=== PATIENT | male | born 1940 | race Caucasian/White ===

== ENCOUNTER 2019-03-06 12:09 | Observation (INO) | payer MEDICARE ==
[2019-03-06] VITALS (9 sets, daily range): BP systolic 122–159; BP diastolic 63–95
[~2019-03-06] VITALS: Ht 182.9 cm; Wt 114.1 kg
[2019-03-06] MEDS ORDERED: diphenhydrAMINE 25mg capsule PO PRN (12:35)
[2019-03-06] MEDS ORDERED: normal saline 1,000 ML IV SCH ×2 (12:35→19:55)
[2019-03-06 13:26] LABS: BASOPHILS # (AUTO) 0.1 X10'3 (0-0.2); BASOPHILS % (AUTO) 1.5 % (0-1); EOSINOPHILS # (AUTO) 0.3 X10'3 (0-0.9); EOSINOPHILS % (AUTO) 6.8 % (0-6); HEMATOCRIT 52.2 % (42.0-52.0); HEMOGLOBIN 17.8 g/dl (14.0-17.9); LYMPHOCYTES # (AUTO) 1.2 X10'3 (1.1-4.8); LYMPHOCYTES % (AUTO) 24.6 % (21-51); MEAN CORPUSCULAR HEMOGLOBIN 29.8 PG (27.0-31.0); MEAN CORPUSCULAR VOLUME 87.8 FL (78-98); MEAN PLATELET VOLUME 7.5 FL (7.4-10.4); MONOCYTES # (AUTO) 0.5 X10'3 (0-0.9); MONOCYTES % (AUTO) 9.8 % (2-12); NEUTROPHILS # (AUTO) 2.9 X10'3 (1.8-7.7); NEUTROPHILS % (AUTO) 57.3 % (42-75); PLATELET COUNT 142 X10'3 (140-440); RED BLOOD COUNT 5.95 X10'6 (4.70-6.10); RED CELL DISTRIBUTION WIDTH 14.9 % (11.5-14.5)
[2019-03-06 13:33] LABS: ALBUMIN 3.5 G/DL (3.4-5.0); ANION GAP 4 (8-16); BLOOD UREA NITROGEN 27 MG/DL (7-18); BUN/CREATININE RATIO 19.6 (5.4-32.0); CALCIUM 8.9 MG/DL (8.5-10.1); CHLORIDE 106 MMOL/L (99-107); CREATININE 1.38 MG/DL (0.60-1.10); GLUCOSE 97 MG/DL (70-104); MAGNESIUM 1.9 MG/DL (1.5-2.4); SODIUM 138 MMOL/L (135-145); TOTAL CARBON DIOXIDE 27.9 MMOL/L (24-32); eGFR 50 ML/MIN
[2019-03-06] MEDS ORDERED: FENO145T38 PO (13:39)
[2019-03-06] MEDS ORDERED: PRAV10TA39 PO (13:39)
[2019-03-06] MEDS ORDERED: METO50TA17 PO (13:39)
[2019-03-06] MEDS ORDERED: TRAM50TA2 PO (13:39)
[2019-03-06] MEDS ORDERED: VARD20TA31 PO (13:39)
[2019-03-06] MEDS ORDERED: TERB250T4 PO (13:39)
[2019-03-06] MEDS ORDERED: DIGO125T97 PO (13:39)
[2019-03-06] MEDS ORDERED: NAPR-1154 PO (13:39)
[2019-03-06] MEDS ORDERED: WARF2.5T PO (13:39)
[2019-03-06] MEDS ORDERED: ALLO300T2 PO (13:39)
[2019-03-06] MEDS ORDERED: FISH12002 PO (13:39)
[2019-03-06] MEDS ORDERED: FLO0.4C PO (13:39)
[2019-03-06] MEDS ORDERED: RANI300C PO (13:39)
[2019-03-06] MEDS ORDERED: midazolam 2 mg/2 ml injection ONE ×3 (14:47→18:12)
[2019-03-06] MEDS ORDERED: ceFAZolin 1GM/D5W- ADD-VANTAGE 50 ML IV ONE (14:47)
[2019-03-06] MEDS ORDERED: fentaNYL/PF 50MCG/1 ML 2ML syringe ONE ×3 (14:47→18:32)
[2019-03-06] MEDS ORDERED: ceFAZolin 1000mg inj ONE (14:48)
[2019-03-06] MEDS ORDERED: LIDOcaine 1% W/epiNEPHrine 1:100,000 20ml vial ONE (14:48)
[2019-03-06] MEDS ORDERED: vancomycin 1,000mg inj ONE (14:48)
[2019-03-06] MEDS ORDERED: iohexol 350 MG/ML 50ML vial IV ONE (17:10)
[2019-03-06] MEDS ORDERED: LIDOcaine 1% (10mg/ml)w/preservative injection 20ml MDV ONE (17:10)
[2019-03-06] MEDS ORDERED: iohexol 350MG/ML 100ml bottle IV ONE ×3 (17:10→18:31)
[2019-03-06] MEDS ORDERED: nitroGLYCERIN-Tridil 50MG/D5W 250 ML IV ONE (17:38)
[2019-03-06] MEDS ORDERED: verapamil 2.5 mg/ml inj IV ONE (17:38)
[2019-03-06] MEDS ORDERED: heparin 1,000unit/ml 10ml vial 10 ML ONE (17:39)
[2019-03-06] MEDS ORDERED: clopidogrel 300mg tablet ONE (18:38)
--- NOTE | 2019-03-06 22:30 | NUR ---
Education provided to pt with family ( and son) present. discharge packet provided and explained including new medication and prescription, signs and symptoms of bleeding and what to do if bleeding occurs. follow up appointment information reviewed and provided in written form, implant (stent) information wallet card provided to pt. pt iv removed and home cloths worn, all belongings gathered and pt brought to car via wheelchair with assistance from RN.
== END 2019-03-06 22:45 | disposition home or self-care (01) ==
LOC: SSTAY O 12:09 → PCU 3S 19:54
PROVIDERS: ADMIT Internal Medicine Cardiovascular Disease; ATTEND Internal Medicine Cardiovascular Disease
DX: Z01.810 Encounter for preprocedural cardiovascular examination (principal); I47.2 Ventricular tachycardia; I48.20 Chronic atrial fibrillation, unspecified; I10 Essential (primary) hypertension; R79.0 Abnormal level of blood mineral; I49.5 Sick sinus syndrome; N40.0 Benign prostatic hyperplasia without lower urinary tract symptoms; R37 Sexual dysfunction, unspecified; G89.4 Chronic pain syndrome; L43.9 Lichen planus, unspecified; I48.92 Unspecified atrial flutter; M25.00 Hemarthrosis, unspecified joint; I73.9 Peripheral vascular disease, unspecified; E78.5 Hyperlipidemia, unspecified; E11.9 Type 2 diabetes mellitus without complications; K21.9 Gastro-esophageal reflux disease without esophagitis; G47.00 Insomnia, unspecified; M10.9 Gout, unspecified; Z87.891 Personal history of nicotine dependence; Z85.820 Personal history of malignant melanoma of skin; Z90.49 Acquired absence of other specified parts of digestive tract; Z95.0 Presence of cardiac pacemaker; Z79.01 Long term (current) use of anticoagulants; Z79.899 Other long term (current) drug therapy
CPT/HCPCS: 36415; 80048; 83735; 85025; 85610; 93458; C1729; C1769; C1874; C1894; C9600; G0378; J0690; J1644; J2001; J2250; J3010; J3370; J7030; Q0163; Q9967; 99152; 99153; A4620; A5120; A6258; C1760; J3490

== ENCOUNTER 2023-06-03 07:33 | Day surgery (SDC) | payer MEDICARE ==
[~2023-06-03] VITALS: Ht 182.9 cm; Wt 120.5 kg
[2023-06-03] VITALS (11 sets, daily range): BP systolic 115–177; BP diastolic 58–97; PULSE 68–82; RESP 14–19; TEMP 98.2; O2SAT 92–98
[~2023-06-03 07:33] MED LIST: ALLO300T2 PO; DIGO125T97 PO; FENO145T38 PO; FISH12002 PO; FLO0.4C PO; METO50TA17 PO; NAPR-1154 PO; PRAV10TA39 PO; RANI300C PO; TERB250T89 PO; TRAM50TA2 PO; VARD20TA31 PO; WARF2.5T2 PO
[2023-06-03] MEDS ORDERED: diphenhydrAMINE 25mg capsule PO PRN (08:05)
[2023-06-03] MEDS ORDERED: normal saline 1,000 ML IV SCH (08:05)
[2023-06-03] MEDS ORDERED: sodium bicarbonate 1meq/ml syr 150 ML in dextrose 5%-water 1,000 ML IV SCH (08:05)
[2023-06-03] MEDS ORDERED: CLOP75TA34 PO (08:19)
[2023-06-03] MEDS ORDERED: CLIN300C71 PO (08:19)
[2023-06-03] MEDS ORDERED: AMI200T PO (08:19)
[2023-06-03 08:57] LABS: BASOPHILS # (AUTO) 0.1 X10'3 (0-0.2); EOSINOPHILS # (AUTO) 0.2 X10'3 (0-0.9); EOSINOPHILS % (AUTO) 3.5 % (0-6); HEMATOCRIT 50.7 % (42.0-52.0); HEMOGLOBIN 16.8 g/dl (14.0-17.9); LYMPHOCYTES # (AUTO) 0.8 X10'3 (1.1-4.8); LYMPHOCYTES % (AUTO) 15.4 % (21-51); MEAN CORPUSCULAR HEMOGLOBIN 29.6 PG (27.0-31.0); MEAN CORPUSCULAR HGB CONC 33.1 g/dL (33.0-36.5); MEAN CORPUSCULAR VOLUME 89.4 FL (78-98); MEAN PLATELET VOLUME 7.2 FL (7.4-10.4); MONOCYTES # (AUTO) 0.5 X10'3 (0-0.9); MONOCYTES % (AUTO) 9.6 % (2-12); NEUTROPHILS # (AUTO) 3.8 X10'3 (1.8-7.7); NEUTROPHILS % (AUTO) 70.5 % (42-75); PLATELET COUNT 152 X10'3 (140-440); RED BLOOD COUNT 5.68 X10'6 (4.70-6.10); RED CELL DISTRIBUTION WIDTH 15.3 % (11.5-14.5); WHITE BLOOD COUNT 5.4 X10'3 (4.5-11.0)
[2023-06-03 09:04] LABS: INR 2.1 INR; PROTHROMBIN TIME 21.4 SECONDS (9.0-12.0)
[2023-06-03 10:13] LABS: ALBUMIN 3.6 G/DL (3.4-5.0); ANION GAP 6 (8-16); BLOOD UREA NITROGEN 25 MG/DL (7-18); BUN/CREATININE RATIO 17.9 (10.0-20.0); CALCIUM 8.9 MG/DL (8.5-10.1); CHLORIDE 106 MMOL/L (99-107); GLUCOSE 110 MG/DL (70-104); MAGNESIUM 2.3 MG/DL (1.5-2.4); POTASSIUM 4.9 MMOL/L (3.5-5.1); SODIUM 139 MMOL/L (135-145); TOTAL CARBON DIOXIDE 26.8 MMOL/L (24-32); eCRCL 45 ML/MIN; eGFR 49 ML/MIN
[2023-06-03] MEDS ORDERED: LIDOcaine 1% (10mg/ml) 2ml vial ONE (12:25)
[2023-06-03] MEDS ORDERED: verapamil 2.5 mg/ml inj IV ONE (12:25)
[2023-06-03] MEDS ORDERED: iohexol 350MG/ML 100ml bottle IV ONE ×2 (12:26→13:50)
[2023-06-03] MEDS ORDERED: fentaNYL/PF 50MCG/1 ML 2ML syringe ONE ×2 (12:26→13:48)
[2023-06-03] MEDS ORDERED: midazolam 1 mg/ML 2ml injection ONE ×2 (12:26→13:05)
[2023-06-03] MEDS ORDERED: iohexol 350 MG/ML 50ML vial IV ONE ×3 (12:26→14:33)
[2023-06-03] MEDS ORDERED: heparin 1,000unit/ml 10ml vial 10 ML ONE (12:26)
[2023-06-03] MEDS ORDERED: nitroGLYCERIN 500mcg/5mL D5W 5 ML IV ONE (12:54)
[2023-06-03] MEDS ORDERED: heparin 1,000 UNITS/NS 500ml 500 ML ONE (14:18)
[2023-06-03] MEDS ORDERED: hydrALAZINE 20mg/ml inj. IV ONE (14:41)
[2023-06-03] MEDS ORDERED: enalaprilat dihydrate 2.5mg/2ml vial IV ONE (15:05)
[2023-06-03] MEDS ORDERED: clopidogrel 300mg tablet ONE (15:06)
[2023-06-03] MEDS ORDERED: proCHLORperazine 10 MG/2 ml inj IV PRN (16:00)
[2023-06-03] MEDS ORDERED: HYDROcodone/acetaminophen 10/325mg tab PO PRN (16:00)
[2023-06-03] MEDS ORDERED: ondansetron/PF 4mg/2ml inj IV PRN (16:00)
[2023-06-03] MEDS ORDERED: HYDROcodone/acetaminophen 5mg/325mg tablet PO PRN (16:00)
== END 2023-06-03 19:00 | disposition home or self-care (01) ==
LOC: SSTAY O 07:33
PROVIDERS: ATTEND Internal Medicine Cardiovascular Disease
DX: R94.39 Abnormal result of other cardiovascular function study (principal); I25.118 Atherosclerotic heart disease of native coronary artery with other forms of angina pectoris; I48.20 Chronic atrial fibrillation, unspecified; I49.5 Sick sinus syndrome; I10 Essential (primary) hypertension; E78.5 Hyperlipidemia, unspecified; N40.0 Benign prostatic hyperplasia without lower urinary tract symptoms; G89.4 Chronic pain syndrome; G45.3 Amaurosis fugax; E11.9 Type 2 diabetes mellitus without complications; K21.9 Gastro-esophageal reflux disease without esophagitis; G47.30 Sleep apnea, unspecified; M10.9 Gout, unspecified; Z79.01 Long term (current) use of anticoagulants; Z79.899 Other long term (current) drug therapy; Z95.5 Presence of coronary angioplasty implant and graft; Z95.0 Presence of cardiac pacemaker; Z87.442 Personal history of urinary calculi; Z98.890 Other specified postprocedural states; Z96.643 Presence of artificial hip joint, bilateral; Z85.820 Personal history of malignant melanoma of skin; Z87.891 Personal history of nicotine dependence; Z72.89 Other problems related to lifestyle; Z82.3 Family history of stroke
CPT/HCPCS: 36415; 80048; 83735; 85025; 85610; 93005; 93458; 99152; 99153; A6258; C1874; C9600; J0360; J1644; J2250; J3010; J3490; J7030; Q9967; A6402; C1725; C1751; C1769; C1894

== ENCOUNTER 2023-06-28 16:23 | Emergency (ER) | payer MEDICARE ==
[~2023-06-28] VITALS: Ht 180.3 cm; Wt 118.4 kg
[~2023-06-28 16:23] MED LIST changes: +AMI200T PO; +CLIN300C71 PO; +CLOP75TA34 PO; -DIGO125T97 PO; -RANI300C PO; -VARD20TA31 PO
[2023-06-28 16:43] VITALS: TEMP 98.9
[2023-06-28] MEDS ORDERED: TAMSULOSIN (17:36)
[2023-06-28] MEDS ORDERED: PRAVASTATIN (17:36)
[2023-06-28] MEDS ORDERED: FENO145T25 PO (17:36)
[2023-06-28] MEDS ORDERED: SERT-434 PO (17:36)
[2023-06-28] MEDS ORDERED: WARF-65 (17:36)
[2023-06-28] MEDS ORDERED: SILV25CR21 (17:36)
[2023-06-28] MEDS ORDERED: ALLO300T8 PO (17:36)
[2023-06-28] MEDS ORDERED: TRAM50TA2 PO (17:36)
[2023-06-28] MEDS ORDERED: METO50TA16 PO (17:36)
[2023-06-28] MEDS ORDERED: PANT40TA54 PO (17:36)
[2023-06-28] MEDS ORDERED: FLO0.4C (17:36)
[2023-06-28 19:39] LABS: BASOPHILS % (AUTO) 0.7 % (0-1); EOSINOPHILS # (AUTO) 0.2 X10'3 (0-0.9); EOSINOPHILS % (AUTO) 2.3 % (0-6); HEMATOCRIT 45.3 % (42.0-52.0); HEMOGLOBIN 15.2 g/dl (14.0-17.9); LYMPHOCYTES # (AUTO) 0.8 X10'3 (1.1-4.8); LYMPHOCYTES % (AUTO) 11.3 % (21-51); MEAN CORPUSCULAR HEMOGLOBIN 29.3 PG (27.0-31.0); MEAN CORPUSCULAR HGB CONC 33.5 g/dL (33.0-36.5); MEAN CORPUSCULAR VOLUME 87.7 FL (78-98); MEAN PLATELET VOLUME 7.6 FL (7.4-10.4); MONOCYTES % (AUTO) 14.2 % (2-12); NEUTROPHILS # (AUTO) 4.9 X10'3 (1.8-7.7); NEUTROPHILS % (AUTO) 71.5 % (42-75); PLATELET COUNT 150 X10'3 (140-440); RED BLOOD COUNT 5.17 X10'6 (4.70-6.10); RED CELL DISTRIBUTION WIDTH 15.7 % (11.5-14.5); WHITE BLOOD COUNT 6.8 X10'3 (4.5-11.0)
[2023-06-28 19:48] LABS: ANION GAP 6 (8-16); BLOOD UREA NITROGEN 31 MG/DL (7-18); BUN/CREATININE RATIO 20.3 (10.0-20.0); CALCIUM 8.4 MG/DL (8.5-10.1); CHLORIDE 108 MMOL/L (99-107); CREATININE 1.53 MG/DL (0.60-1.10); GLUCOSE 99 MG/DL (70-104); POTASSIUM 4.9 MMOL/L (3.5-5.1); SODIUM 142 MMOL/L (135-145); TOTAL CARBON DIOXIDE 28.1 MMOL/L (24-32); eCRCL 40 ML/MIN; eGFR 44 ML/MIN
[2023-06-28] MEDS ORDERED: DOXY100C43 PO (20:31)
[2023-06-28 20:42] LABS: INR 1.8 INR; PROTHROMBIN TIME 18.5 SECONDS (9.0-12.0)
[2023-06-28] MEDS: DOXYCYCLINE 100MG CAPSULE PO STA (21:24)
[2023-06-28] MEDS: traMADol 50MG tablet PO STA (21:44)
[2023-06-28 21:55] VITALS: BP 140/91; PULSE 88; RESP 20; O2SAT 95
== END 2023-06-28 21:57 | disposition home or self-care (01) ==
LOC: ER 16:23
DX: L03.116 Cellulitis of left lower limb (principal); L02.416 Cutaneous abscess of left lower limb; R60.9 Edema, unspecified; I50.9 Heart failure, unspecified; M79.605 Pain in left leg; Z79.899 Other long term (current) drug therapy; Z79.2 Long term (current) use of antibiotics
CPT/HCPCS: 36415; 80048; 85025; 85610; 93926; 99284

== ENCOUNTER 2024-05-02 22:20 | Emergency (ER) | payer MEDICARE ==
[~2024-05-02] VITALS: Ht 182.9 cm; Wt 118.2 kg
[~2024-05-02 22:20] MED LIST changes: +ALLO300T8 PO; +FENO145T25 PO; +FLO0.4C; +METO50TA16 PO; +PANT40TA54 PO; +PRAVASTATIN; +SERT-434 PO; +SILV25CR21; +TAMSULOSIN; +WARF-65
[2024-05-02] MEDS ORDERED: OXYC-145 PO (23:12)
[2024-05-02] MEDS: oxyCODONE/APAP 5-325mg tablet PO ONE (23:17)
[2024-05-03 00:16] VITALS: BP 134/90; PULSE 78; RESP 18; TEMP 97.9; O2SAT 98
== END 2024-05-03 00:17 | disposition home or self-care (01) ==
LOC: ER 22:21
DX: S62.002A Unspecified fracture of navicular [scaphoid] bone of left wrist, initial encounter for closed fracture (principal); I50.9 Heart failure, unspecified; I25.10 Atherosclerotic heart disease of native coronary artery without angina pectoris; I48.91 Unspecified atrial fibrillation; Z79.899 Other long term (current) drug therapy; Z79.1 Long term (current) use of non-steroidal anti-inflammatories (NSAID); W18.39XA Other fall on same level, initial encounter; Y93.89 Activity, other specified; Y92.89 Other specified places as the place of occurrence of the external cause; Y99.8 Other external cause status
CPT/HCPCS: 29125; 73110; 99283; A6449

== ENCOUNTER 2024-05-04 03:56 | Inpatient (IN) | payer MEDICARE ==
[~2024-05-04] VITALS: Ht 182.9 cm; Wt 125.0 kg
[~2024-05-04 03:56] MED LIST changes: +OXYC-145 PO
[2024-05-04 04:40] LABS: BASOPHILS % (AUTO) 0.2 % (0-1); EOSINOPHILS % (AUTO) 0.2 % (0-6); HEMATOCRIT 43.2 % (42.0-52.0); HEMOGLOBIN 14.2 g/dl (14.0-17.9); LYMPHOCYTES # (AUTO) 0.2 X10'3 (1.1-4.8); LYMPHOCYTES % (AUTO) 2.2 % (21-51); MEAN CORPUSCULAR HEMOGLOBIN 27.7 PG (27.0-31.0); MEAN CORPUSCULAR HGB CONC 32.8 g/dL (33.0-36.5); MEAN CORPUSCULAR VOLUME 84.6 FL (78-98); MEAN PLATELET VOLUME 7.5 FL (7.4-10.4); MONOCYTES # (AUTO) 0.3 X10'3 (0-0.9); MONOCYTES % (AUTO) 3.1 % (2-12); NEUTROPHILS # (AUTO) 8.5 X10'3 (1.8-7.7); NEUTROPHILS % (AUTO) 94.3 % (42-75); PLATELET COUNT 102 X10'3 (140-440); RED BLOOD COUNT 5.11 X10'6 (4.70-6.10); RED CELL DISTRIBUTION WIDTH 17.2 % (11.5-14.5)
[2024-05-04] MEDS: HYDROmorphone inj. 0.5 MG/0.5 ML DISP.SYRIN IV ONE (04:48)
[2024-05-04] MEDS: CefTRIAXone 2gm/D5W 50ml BAG 50 ML IV ONE (04:49)
[2024-05-04] MEDS: diltiazem 5mg/ml 5ml inj. IV ONE ×2 (04:51→11:03)
[2024-05-04] MEDS: magnesium sulf-water 2g/50mL 50 ML IV ONE (04:52)
[2024-05-04 04:53] LABS: INR 1.9 INR; PROTHROMBIN TIME 18.8 SECONDS (9.0-12.0)
[2024-05-04] MEDS: normal saline 1000ml 1,000 ML IV ONE (04:53)
[2024-05-04 04:56] LABS: ALANINE AMINOTRANSFERASE 27 U/L (12-78); ALBUMIN 2.4 G/DL (3.4-5.0); ALBUMIN/GLOBULIN RATIO 0.6 (1.1-1.5); ALKALINE PHOSPHATASE 91 IU/L (46-116); ANION GAP 12 (8-16); ASPARTATE AMINO TRANSFERASE 72 U/L (10-37); BILIRUBIN,TOTAL 2.1 MG/DL (0.1-1.0); BLOOD UREA NITROGEN 57 MG/DL (7-18); BUN/CREATININE RATIO 23.3 (10.0-20.0); CALCIUM 8.8 MG/DL (8.5-10.1); CHLORIDE 100 MMOL/L (99-107); CREATININE 2.45 MG/DL (0.60-1.10); GLUCOSE 98 MG/DL (70-104); SODIUM 135 MMOL/L (135-145); TOTAL CARBON DIOXIDE 22.8 MMOL/L (24-32); TOTAL PROTEIN 6.4 G/DL (6.4-8.2); eCRCL 26 ML/MIN; eGFR 25 ML/MIN
[2024-05-04 04:58] LABS: ANISOCYTOSIS 1+; PLATELET ESTIMATE DECREASED; TOTAL CELLS COUNTED 100
[2024-05-04] MEDS: vancomycin/NS 1 GM ADD-VANTAGE 250 ML X 1 DOSE IV ONE (05:01)
[2024-05-04 05:03] LABS: PRO BRAIN NATRIURETIC PEPTIDE 3576 PG/ML (0-450)
[2024-05-04 05:05] LABS: C-REACTIVE PROTEIN 32.11 MG/DL (0.0-0.5); POTASSIUM 3.7 MMOL/L (3.5-5.1)
[2024-05-04 06:20] LABS: LIPASE 51 U/L (16-77)
[2024-05-04] MEDS ORDERED: magnesium Cl slow-release 64mg tablet PO PRN (07:15)
[2024-05-04] MEDS ORDERED: potassium Cl 20 mEq SR tablet PO PRN ×2 (07:15)
[2024-05-04] MEDS ORDERED: potassium Cl 40MEQ/1/2NS 520ml 520 ML IV PRN (07:15)
[2024-05-04] MEDS ORDERED: morphine 2 MG/ML inj. syringe IV PRN (07:15)
[2024-05-04] MEDS ORDERED: magnesium sulf-water 2g/50mL 50 ML IV PRN (07:15)
[2024-05-04] MEDS ORDERED: ondansetron/PF 4mg/2ml inj IV PRN (07:15)
[2024-05-04] MEDS ORDERED: acetaminophen 325mg tablet PO PRN (07:15)
[2024-05-04] MEDS ORDERED: magnesium sulf-water 4G/100mL 100 ML IV PRN (07:15)
[2024-05-04] MEDS: normal saline 1000ml 1,000 ML IV SCH (07:47)
[2024-05-04] MEDS: HYDROcodone/acetaminophen 5mg/325mg tablet PO PRN (07:57)
[2024-05-04] MEDS: doxycycline inj 100 MG in normal saline 100ml IV soln 100 ML IV SCH (09:58)
[2024-05-04] MEDS: acetaminophen 325mg tablet PO SCH (10:07)
[2024-05-04] MEDS: amiodarone 200mg tablet PO SCH (10:07)
[2024-05-04] MEDS: clopidogrel 75mg tablet PO SCH (10:08)
[2024-05-04] MEDS: metoprolol tartrate 50mg tablet PO ONE (10:08)
[2024-05-04] MEDS: heparin, porcine 5000 units/ml vial SQ SCH (10:09)
[2024-05-04 11:49] LABS: BILIRUBIN,URINE SMALL (Neg); GLUCOSE, URINE NEGATIVE (Neg); KETONES,URINE NEGATIVE (Neg); LEUKOCYTE ESTERASE ,URINE NEGATIVE (Neg); NITRITES, URINE NEGATIVE (Neg); OCCULT BLOOD,URINE NEGATIVE (Neg); PH,URINE 5.5 (4.8-8.0); PROTEIN,URINE 30 mg/dl (Neg)
[2024-05-04 12:06] LABS: CLARITY,URINE CLOUDY (Clear); COLOR,URINE DARK YELLOW (Yellow); UA COLLECTION TYPE STRAIGHT CATH
[2024-05-04 12:07] LABS: FINE GRANULAR CAST 0-3 /LPF (NEGATIVE)
[2024-05-04 12:08] LABS: AMORPHOUS URATES 2+; BACTERIA,URINE 1+ /HPF (Neg); MUCUS STRANDS FEW /LPF (Neg); RBC,URINE 0-2 /HPF (0-2); SQUAMOUS EPITHELIAL CELL,UR FEW /LPF (FEW); TRANSITIONAL EPI CELLS,URINE FEW /HPF; WBC,URINE 0-4 /HPF (0-4)
[2024-05-04] MEDS: furosemide 20 MG/2 ML vial IV ONE (17:21)
[2024-05-04] MEDS: morphine 2 MG/ML inj. syringe IV PRN (17:33)
[2024-05-04 18:00] VITALS: BP 127/67; PULSE 107; RESP 22; TEMP 97.3; O2SAT 92
[2024-05-04] MEDS ORDERED: pravastatin 10mg tablet PO SCH (21:00)
[2024-05-04] MEDS: atorvastatin 10mg tablet PO ONE (21:57)
[2024-05-04] MEDS: metoprolol tartrate 50mg tablet PO SCH (21:58)
[2024-05-04 22:00] VITALS: BP 99/53; PULSE 97; RESP 18; TEMP 97.2; O2SAT 91
[2024-05-05] MEDS: HYDROcodone/acetaminophen 5mg/325mg tablet PO PRN (04:35)
[2024-05-05 06:00] VITALS: BP 109/55; PULSE 81; RESP 18; TEMP 98.1; O2SAT 90
[2024-05-05] MEDS: sertraline 50mg tablet PO SCH (08:20)
[2024-05-05] MEDS: tamsulosin 0.4mg capsule PO SCH (08:21)
[2024-05-05] MEDS: allopurinol 100mg tablet PO SCH (08:21)
[2024-05-05 09:18] LABS: HEMOGLOBIN 13.1 g/dl (14.0-17.9); NEUTROPHILS # (AUTO) 5.8 X10'3 (1.8-7.7); WHITE BLOOD COUNT 6.7 X10'3 (4.5-11.0)
[2024-05-05 09:20] LABS: BASOPHILS % (AUTO) 0.3 % (0-1); EOSINOPHILS # (AUTO) 0.2 X10'3 (0-0.9); EOSINOPHILS % (AUTO) 2.3 % (0-6); HEMATOCRIT 39.8 % (42.0-52.0); LYMPHOCYTES # (AUTO) 0.3 X10'3 (1.1-4.8); MEAN CORPUSCULAR HEMOGLOBIN 27.6 PG (27.0-31.0); MEAN CORPUSCULAR HGB CONC 32.9 g/dL (33.0-36.5); MEAN CORPUSCULAR VOLUME 83.9 FL (78-98); MEAN PLATELET VOLUME 7.9 FL (7.4-10.4); MONOCYTES # (AUTO) 0.5 X10'3 (0-0.9); NEUTROPHILS % (AUTO) 85.4 % (42-75); PLATELET COUNT 78 X10'3 (140-440); RED BLOOD COUNT 4.74 X10'6 (4.70-6.10); RED CELL DISTRIBUTION WIDTH 17.4 % (11.5-14.5)
[2024-05-05 09:43] LABS: ALANINE AMINOTRANSFERASE 35 U/L (12-78); ALBUMIN 1.8 G/DL (3.4-5.0); ALBUMIN/GLOBULIN RATIO 0.5 (1.1-1.5); ALKALINE PHOSPHATASE 85 IU/L (46-116); ANION GAP 14 (8-16); ASPARTATE AMINO TRANSFERASE 106 U/L (10-37); BILIRUBIN,TOTAL 2.3 MG/DL (0.1-1.0); BLOOD UREA NITROGEN 76 MG/DL (7-18); BUN/CREATININE RATIO 23.2 (10.0-20.0); CALCIUM 8.4 MG/DL (8.5-10.1); CHLORIDE 104 MMOL/L (99-107); CREATININE 3.28 MG/DL (0.60-1.10); GLUCOSE 97 MG/DL (70-104); POTASSIUM 4.1 MMOL/L (3.5-5.1); SODIUM 139 MMOL/L (135-145); TOTAL CARBON DIOXIDE 21.1 MMOL/L (24-32); TOTAL PROTEIN 5.6 G/DL (6.4-8.2); eCRCL 19 ML/MIN; eGFR 18 ML/MIN
[2024-05-05 10:00] VITALS: BP 93/54; PULSE 79; RESP 22; TEMP 97.4; O2SAT 94
[2024-05-05] MEDS: multivitamins, therapeutics tablet PO SCH (13:48)
[2024-05-05 18:00] VITALS: BP 80/44; PULSE 85; RESP 22; TEMP 97.5; O2SAT 95
[2024-05-05] MEDS: lactose-reduced food (Ensure Enlive) - 237ml bottle PO SCH (18:00)
[2024-05-05 19:15] LABS: INR 2.7 INR; PROTHROMBIN TIME 26.2 SECONDS (9.0-12.0)
[2024-05-05 22:00] VITALS: BP 96/59; PULSE 74; RESP 17; TEMP 98; O2SAT 92
[2024-05-06] MEDS: OMEGA-3/DHA/EPA/FISH OIL 1 EACH CAPSULE.DR PO SCH (00:01)
[2024-05-06] MEDS: atorvastatin 10mg tablet PO SCH (00:01)
[2024-05-06] MEDS: warfarin 2.5mg tablet PO ONE (00:03)
[2024-05-06] MEDS: LORazepam 2 mg/ml vial IV ONE ×2 (03:09→20:09)
[2024-05-06 06:00] VITALS: BP 99/54; PULSE 71; RESP 15; TEMP 97.4; O2SAT 93
[2024-05-06 06:29] LABS: BASOPHILS % (AUTO) 0.3 % (0-1); EOSINOPHILS # (AUTO) 0.2 X10'3 (0-0.9); EOSINOPHILS % (AUTO) 2.2 % (0-6); HEMATOCRIT 40.5 % (42.0-52.0); HEMOGLOBIN 13.5 g/dl (14.0-17.9); LYMPHOCYTES # (AUTO) 0.5 X10'3 (1.1-4.8); LYMPHOCYTES % (AUTO) 4.7 % (21-51); MEAN CORPUSCULAR HEMOGLOBIN 27.8 PG (27.0-31.0); MEAN CORPUSCULAR HGB CONC 33.4 g/dL (33.0-36.5); MEAN CORPUSCULAR VOLUME 83.3 FL (78-98); MEAN PLATELET VOLUME 8.4 FL (7.4-10.4); MONOCYTES # (AUTO) 0.8 X10'3 (0-0.9); MONOCYTES % (AUTO) 8.3 % (2-12); NEUTROPHILS # (AUTO) 8.6 X10'3 (1.8-7.7); NEUTROPHILS % (AUTO) 84.5 % (42-75); PLATELET COUNT 92 X10'3 (140-440); RED BLOOD COUNT 4.86 X10'6 (4.70-6.10); RED CELL DISTRIBUTION WIDTH 17.5 % (11.5-14.5); WHITE BLOOD COUNT 10.2 X10'3 (4.5-11.0)
[2024-05-06 06:34] LABS: INR 2.6 INR; PROTHROMBIN TIME 25.7 SECONDS (9.0-12.0)
[2024-05-06 06:40] LABS: ALANINE AMINOTRANSFERASE 41 U/L (12-78); ALBUMIN 1.8 G/DL (3.4-5.0); ALBUMIN/GLOBULIN RATIO 0.5 (1.1-1.5); ALKALINE PHOSPHATASE 105 IU/L (46-116); ANION GAP 12 (8-16); ASPARTATE AMINO TRANSFERASE 113 U/L (10-37); BILIRUBIN,TOTAL 2.4 MG/DL (0.1-1.0); BLOOD UREA NITROGEN 96 MG/DL (7-18); BUN/CREATININE RATIO 25.3 (10.0-20.0); CHLORIDE 105 MMOL/L (99-107); GLUCOSE 98 MG/DL (70-104); POTASSIUM 4.1 MMOL/L (3.5-5.1); SODIUM 140 MMOL/L (135-145); TOTAL CARBON DIOXIDE 23.4 MMOL/L (24-32); TOTAL PROTEIN 5.7 G/DL (6.4-8.2); eCRCL 16 ML/MIN; eGFR 15 ML/MIN
[2024-05-06 07:19] LABS: ANISOCYTOSIS 1+; PLATELET ESTIMATE DECREASED
[2024-05-06] MEDS: fenofibrate 145mg tablet PO SCH (07:44)
[2024-05-06] MEDS: pantoprazole 40mg Tablet.DR PO SCH (07:46)
[2024-05-06] MEDS ORDERED: warfarin 2.5mg tablet PO SCH (08:00)
[2024-05-06 18:00] VITALS: BP 123/73; PULSE 83; RESP 18; TEMP 98.3; O2SAT 91
[2024-05-06 20:00] VITALS: RESP 18; O2SAT 91
[2024-05-06] MEDS ORDERED: piperacillin/tazo 4.5gm/100ml 100 ML IV SCH (20:00)
[2024-05-06] MEDS: piperacillin/tazo 3.375gm/50ml 50 ML IV SCH (20:59)
[2024-05-06] MEDS ORDERED: warfarin 2.5mg tablet PO ONE (21:00)
[2024-05-06 22:00] VITALS: BP 118/63; PULSE 70; RESP 17; TEMP 98.1; O2SAT 93
[2024-05-06] MEDS: LidoCAINE 2% Topical Jelly 11mL syringe (UROJET) TOP ONE (22:00)
[2024-05-06 22:18] LABS: CREATININE 3.48 MG/DL (0.60-1.10); eCRCL 18 ML/MIN; eGFR 17 ML/MIN
[2024-05-06] MEDS: ringers solution, lacted 1,000 ML IV SCH (23:27)
[2024-05-06] MEDS: vancomycin/NS 1 GM ADD-VANTAGE 250 ML IV SCH (23:27)
[2024-05-07] VITALS (8 sets, daily range): BP systolic 111–148; BP diastolic 53–78; PULSE 73–88; RESP 13–24; TEMP 97.2–98.6; O2SAT 93–98
[2024-05-07 07:14] LABS: INR 3.3 INR; PROTHROMBIN TIME 32.1 SECONDS (9.0-12.0)
[2024-05-07 07:47] LABS: BASOPHILS % (AUTO) 0.3 % (0-1); EOSINOPHILS # (AUTO) 0.1 X10'3 (0-0.9); EOSINOPHILS % (AUTO) 1.1 % (0-6); HEMATOCRIT 38.6 % (42.0-52.0); HEMOGLOBIN 12.6 g/dl (14.0-17.9); LYMPHOCYTES # (AUTO) 0.5 X10'3 (1.1-4.8); LYMPHOCYTES % (AUTO) 3.6 % (21-51); MEAN CORPUSCULAR HEMOGLOBIN 27.2 PG (27.0-31.0); MEAN CORPUSCULAR HGB CONC 32.7 g/dL (33.0-36.5); MEAN CORPUSCULAR VOLUME 83.2 FL (78-98); MEAN PLATELET VOLUME 8.3 FL (7.4-10.4); MONOCYTES # (AUTO) 0.6 X10'3 (0-0.9); NEUTROPHILS # (AUTO) 11.4 X10'3 (1.8-7.7); PLATELET COUNT 92 X10'3 (140-440); RED BLOOD COUNT 4.63 X10'6 (4.70-6.10); RED CELL DISTRIBUTION WIDTH 18.1 % (11.5-14.5); WHITE BLOOD COUNT 12.6 X10'3 (4.5-11.0)
[2024-05-07 07:50] LABS: ALANINE AMINOTRANSFERASE 44 U/L (12-78); ALBUMIN 1.5 G/DL (3.4-5.0); ALBUMIN/GLOBULIN RATIO 0.4 (1.1-1.5); ALKALINE PHOSPHATASE 129 IU/L (46-116); ANION GAP 11 (8-16); ASPARTATE AMINO TRANSFERASE 113 U/L (10-37); BILIRUBIN,TOTAL 2.2 MG/DL (0.1-1.0); BLOOD UREA NITROGEN 102 MG/DL (7-18); BUN/CREATININE RATIO 30.5 (10.0-20.0); CALCIUM 8.7 MG/DL (8.5-10.1); CHLORIDE 109 MMOL/L (99-107); CREATININE 3.34 MG/DL (0.60-1.10); GLUCOSE 136 MG/DL (70-104); POTASSIUM 4.3 MMOL/L (3.5-5.1); SODIUM 143 MMOL/L (135-145); TOTAL CARBON DIOXIDE 22.7 MMOL/L (24-32); TOTAL PROTEIN 5.4 G/DL (6.4-8.2); eCRCL 19 ML/MIN; eGFR 18 ML/MIN
[2024-05-07 10:28] LABS: ANISOCYTOSIS 2+; PLATELET ESTIMATE DECREASED; TOTAL CELLS COUNTED 100
[2024-05-07 20:02] LABS: ABG BASE EXCESS -0.6 mmol/L (-2.0-3.0); ABG HCO3 23.7 mmol/L (21.0-28.0); ABG OXYGEN SATURATION 97.5 % (94.0-98.0); ABG PCO2 (T) 36.8 mmHg (35.0-48.0); ABG PH (T) 7.424 (7.350-7.450); ABG PO2 (T) 90.4 mmHg (83.0-108.0); FCOHb 1.1 % (0.5-1.5); FHHb 2.5 % (0.0-5.0); FLOW 2 L/min; FMetHb 0.3 % (0.0-1.5); FO2Hb 96.1 % (94.0-98.0); MODE NASAL CANNULA; PATIENT TEMPERATURE 36.4; TOTAL HEMOGLOBIN 13.1 G/dl (13.5-17.5)
[2024-05-08] VITALS (7 sets, daily range): BP systolic 102–145; BP diastolic 53–75; PULSE 70–100; RESP 14–27; TEMP 96.6–97.8; O2SAT 94–98
[2024-05-08 07:52] LABS: BASOPHILS % (AUTO) 0.2 % (0-1); EOSINOPHILS # (AUTO) 0.2 X10'3 (0-0.9); EOSINOPHILS % (AUTO) 1.6 % (0-6); HEMATOCRIT 37.6 % (42.0-52.0); HEMOGLOBIN 12.3 g/dl (14.0-17.9); LYMPHOCYTES # (AUTO) 0.7 X10'3 (1.1-4.8); LYMPHOCYTES % (AUTO) 5.6 % (21-51); MEAN CORPUSCULAR HGB CONC 32.6 g/dL (33.0-36.5); MEAN CORPUSCULAR VOLUME 82.9 FL (78-98); MONOCYTES # (AUTO) 0.4 X10'3 (0-0.9); MONOCYTES % (AUTO) 3.2 % (2-12); NEUTROPHILS # (AUTO) 10.6 X10'3 (1.8-7.7); NEUTROPHILS % (AUTO) 89.4 % (42-75); PLATELET COUNT 93 X10'3 (140-440); RED BLOOD COUNT 4.54 X10'6 (4.70-6.10); RED CELL DISTRIBUTION WIDTH 17.9 % (11.5-14.5); WHITE BLOOD COUNT 11.9 X10'3 (4.5-11.0)
[2024-05-08 07:59] LABS: INR 3.3 INR
[2024-05-08 08:11] LABS: ALANINE AMINOTRANSFERASE 47 U/L (12-78); ALBUMIN 1.4 G/DL (3.4-5.0); ALBUMIN/GLOBULIN RATIO 0.4 (1.1-1.5); ALKALINE PHOSPHATASE 124 IU/L (46-116); ANION GAP 10 (8-16); ASPARTATE AMINO TRANSFERASE 81 U/L (10-37); BILIRUBIN,TOTAL 2.2 MG/DL (0.1-1.0); BLOOD UREA NITROGEN 98 MG/DL (7-18); BUN/CREATININE RATIO 37.7 (10.0-20.0); CALCIUM 8.8 MG/DL (8.5-10.1); CHLORIDE 114 MMOL/L (99-107); GLUCOSE 116 MG/DL (70-104); POTASSIUM 4.5 MMOL/L (3.5-5.1); SODIUM 148 MMOL/L (135-145); TOTAL CARBON DIOXIDE 24.1 MMOL/L (24-32); TOTAL PROTEIN 5.3 G/DL (6.4-8.2); eCRCL 24 ML/MIN; eGFR 24 ML/MIN
[2024-05-08] MEDS: piperacillin/tazo 3.375gm/50ml 50 ML IV SCH (08:53)
[2024-05-08] MEDS ORDERED: SINCALIDE IV ONE (12:00)
[2024-05-08] MEDS ORDERED: NORMAL SALINE IV ONE (12:00)
[2024-05-08 13:18] LABS: INR 3.3 INR
[2024-05-08] MEDS: SINCALIDE IV ONE (15:50)
[2024-05-08] MEDS: NORMAL SALINE IV ONE (15:50)
[2024-05-08] MEDS: LORazepam 2 mg/ml vial IV ONE (16:53)
[2024-05-08] MEDS: VANCOMYCIN 1GM 200ML H20 (PEG) 200 ML IV SCH (19:38)
[2024-05-08] MEDS ORDERED: acetaminophen 325mg/10.15ml oral unit dose solution PO PRN (19:59)
[2024-05-08] MEDS ORDERED: acetaminophen 325mg tablet NG SCH (19:59)
[2024-05-08] MEDS ORDERED: acetaminophen 325mg/10.15ml oral unit dose solution NG PRN (19:59)
[2024-05-08] MEDS ORDERED: ARGININE/GLUTAMINE/CALCIUM BMB (JUVEN 19.3GM PKT) 1 EACH POWD.PACK PO SCH (20:00)
[2024-05-08] MEDS: atorvastatin 10mg tablet NG SCH (21:15)
[2024-05-08] MEDS: docusate sodium 100mg/10ml UD cup NG SCH (21:16)
[2024-05-09] VITALS (7 sets, daily range): BP systolic 124–144; BP diastolic 68–75; PULSE 77–86; RESP 18–23; TEMP 97.7–99; O2SAT 92–96
[2024-05-09] MEDS: acetaminophen 325mg/10.15ml oral unit dose solution NG SCH (00:21)
[2024-05-09 07:21] LABS: BASOPHILS % (AUTO) 0.1 % (0-1); EOSINOPHILS # (AUTO) 0.1 X10'3 (0-0.9); EOSINOPHILS % (AUTO) 0.7 % (0-6); HEMATOCRIT 38.3 % (42.0-52.0); HEMOGLOBIN 12.5 g/dl (14.0-17.9); LYMPHOCYTES # (AUTO) 0.7 X10'3 (1.1-4.8); LYMPHOCYTES % (AUTO) 5.9 % (21-51); MEAN CORPUSCULAR HEMOGLOBIN 26.9 PG (27.0-31.0); MEAN CORPUSCULAR HGB CONC 32.6 g/dL (33.0-36.5); MEAN CORPUSCULAR VOLUME 82.5 FL (78-98); MONOCYTES # (AUTO) 0.5 X10'3 (0-0.9); MONOCYTES % (AUTO) 4.3 % (2-12); NEUTROPHILS # (AUTO) 10.3 X10'3 (1.8-7.7); PLATELET COUNT 132 X10'3 (140-440); RED BLOOD COUNT 4.64 X10'6 (4.70-6.10); RED CELL DISTRIBUTION WIDTH 18.3 % (11.5-14.5); WHITE BLOOD COUNT 11.6 X10'3 (4.5-11.0)
[2024-05-09 07:38] LABS: PROTHROMBIN TIME 44.1 SECONDS (9.0-12.0)
[2024-05-09 07:47] LABS: ANISOCYTOSIS 2+; INR 4.7 INR; PLATELET ESTIMATE DECREASED; TOTAL CELLS COUNTED 100
[2024-05-09 07:48] LABS: MICROCYTOSIS 1+
[2024-05-09 07:50] LABS: ALANINE AMINOTRANSFERASE 45 U/L (12-78); ALBUMIN 1.5 G/DL (3.4-5.0); ALBUMIN/GLOBULIN RATIO 0.4 (1.1-1.5); ALKALINE PHOSPHATASE 108 IU/L (46-116); ANION GAP 11 (8-16); ASPARTATE AMINO TRANSFERASE 61 U/L (10-37); BLOOD UREA NITROGEN 82 MG/DL (7-18); CALCIUM 8.9 MG/DL (8.5-10.1); CHLORIDE 119 MMOL/L (99-107); GLUCOSE 134 MG/DL (70-104); SODIUM 154 MMOL/L (135-145); TOTAL PROTEIN 5.7 G/DL (6.4-8.2); eCRCL 31 ML/MIN; eGFR 32 ML/MIN
[2024-05-09] MEDS: pantoprazole 40 MG vial IV SCH (07:57)
[2024-05-09] MEDS: MULTIVIT-MIN/FERROUS GLUCONATE 9 MG/15 ML LIQUID NG SCH (07:58)
[2024-05-09] MEDS: allopurinol 100mg tablet NG SCH (07:59)
[2024-05-09] MEDS: metoprolol tartrate 50mg tablet NG SCH (07:59)
[2024-05-09] MEDS: amiodarone 200mg tablet NG SCH (07:59)
[2024-05-09] MEDS: clopidogrel 75mg tablet NG SCH (08:00)
[2024-05-09] MEDS: sertraline 50mg tablet NG SCH (08:00)
[2024-05-09] MEDS: fenofibrate 145mg tablet NG SCH (08:00)
[2024-05-09] MEDS: ARGININE/GLUTAMINE/CALCIUM BMB (JUVEN 19.3GM PKT) 1 EACH POWD.PACK NG SCH (08:26)
[2024-05-09] MEDS: dextrose 5%-water 1,000 ML IV SCH (10:36)
[2024-05-10 02:00] VITALS: BP 132/69; PULSE 90; RESP 14; TEMP 98; O2SAT 98
[2024-05-10 06:00] VITALS: BP 145/67; PULSE 81; RESP 25; TEMP 97.4; O2SAT 98
[2024-05-10 07:33] LABS: INR 3.4 INR; PROTHROMBIN TIME 32.6 SECONDS (9.0-12.0)
[2024-05-10 16:00] VITALS: BP 160/88; PULSE 76; RESP 20; TEMP 98; O2SAT 97
[2024-05-10 18:00] VITALS: BP 146/74; PULSE 85; RESP 18; TEMP 96.1; O2SAT 96
[2024-05-10 20:00] VITALS: RESP 18; O2SAT 96
[2024-05-10 22:00] VITALS: BP 129/69; PULSE 73; RESP 20; TEMP 97.6; O2SAT 97
[2024-05-10 23:33] LABS: ALBUMIN 1.5 G/DL (3.4-5.0); ANION GAP 9 (8-16); BLOOD UREA NITROGEN 62 MG/DL (7-18); BUN/CREATININE RATIO 36.7 (10.0-20.0); CALCIUM 8.6 MG/DL (8.5-10.1); CHLORIDE 124 MMOL/L (99-107); CREATININE 1.69 MG/DL (0.60-1.10); GLUCOSE 135 MG/DL (70-104); TOTAL CARBON DIOXIDE 27.2 MMOL/L (24-32); eCRCL 37 ML/MIN; eGFR 39 ML/MIN
[2024-05-10 23:41] LABS: POTASSIUM 4.5 MMOL/L (3.5-5.1)
[2024-05-10 23:44] LABS: SODIUM 160 MMOL/L (135-145)
[2024-05-11 02:00] VITALS: BP 134/63; PULSE 85; RESP 17; TEMP 98; O2SAT 99
[2024-05-11] MEDS: desmopressin inj. 4 MCG in normal saline 100ml IV soln 100 ML IV ONE (05:46)
[2024-05-11 06:00] VITALS: BP 147/79; PULSE 81; RESP 20; TEMP 98.3; O2SAT 99
[2024-05-11 08:00] VITALS: RESP 18
[2024-05-11 09:33] VITALS: BP_SYST 147; PULSE 81
[2024-05-11] MEDS ORDERED: lactose-reduced food (Ensure Enlive) - 237ml bottle NG SCH (18:00)
[2024-05-12] MEDS ORDERED: VANCOMYCIN LEVEL IV ONE (19:30)
== END 2024-05-11 17:04 | DRG 682 ==
LOC: ER 03:57 → ED HOLD 07:21 → ORTHO 4S 17:12 → PCU 3S 05-07 01:02
PROVIDERS: ADMIT Internal Medicine; ATTEND Internal Medicine
PROC: CF141ZZ Planar Nuclear Medicine Imaging of Gallbladder using Technetium 99m (Tc-99m) (ICD-10-PCS; principal; 2024-05-08)
DX: N17.0 Acute kidney failure with tubular necrosis (principal); G93.41 Metabolic encephalopathy; L03.116 Cellulitis of left lower limb; I48.20 Chronic atrial fibrillation, unspecified; E87.20 Acidosis, unspecified; G93.40 Encephalopathy, unspecified; L03.115 Cellulitis of right lower limb; L02.416 Cutaneous abscess of left lower limb; Z66 Do not resuscitate; F03.90 Unspecified dementia, unspecified severity, without behavioral disturbance, psychotic disturbance, mood disturbance, and anxiety; E11.22 Type 2 diabetes mellitus with diabetic chronic kidney disease; N18.9 Chronic kidney disease, unspecified; I50.9 Heart failure, unspecified; I25.10 Atherosclerotic heart disease of native coronary artery without angina pectoris; N18.30 Chronic kidney disease, stage 3 unspecified; I87.8 Other specified disorders of veins; D72.829 Elevated white blood cell count, unspecified; S81.802A Unspecified open wound, left lower leg, initial encounter; X58.XXXA Exposure to other specified factors, initial encounter; Y93.89 Activity, other specified; Z79.01 Long term (current) use of anticoagulants; Y92.89 Other specified places as the place of occurrence of the external cause; Z79.899 Other long term (current) drug therapy; Y99.8 Other external cause status; S62.002D Unspecified fracture of navicular [scaphoid] bone of left wrist, subsequent encounter for fracture with routine healing
CPT/HCPCS: 36415; 36600; 70450; 71045; 73110; 73130; 73590; 73610; 74018; 76700; 78227; 80048; 80053; 81001; 82140; 82565; 82803; 83036; 83605; 83690; 83880; 84145; 85007; 85008; 85018; 85025; 85610; 85651; 86140; 87040; 87081; 92508; 92616; 93005; 93306; 93970; 99285; A4314; A4615; A5200; A6196; A6212; A6213; A6222; A6223; A6250; A6253; A6258; A6260; A6446; A6449; A6590; A9537; C1758; G0378; J0696; J1171; J1644; J1940; J2060; J2270; J2470; J2543; J2597; J2805; J3370; J3372; J3490; J7030; J7070; J7120; J7121

== ENCOUNTER 2024-05-19 15:12 | Emergency (ER) | payer MEDICARE ==
[~2024-05-19] VITALS: Ht 188 cm; Wt 119.0 kg
[~2024-05-19 15:12] MED LIST changes: -ALLO300T8 PO; -NAPR-1154 PO; -TERB250T89 PO
[2024-05-19] MEDS: HYDROcodone/acetaminophen 5mg/325mg tablet PO ONE (16:31)
[2024-05-19 17:14] LABS: BILIRUBIN,URINE NEGATIVE (Neg); CLARITY,URINE SLIGHTLY CLOUDY (Clear); COLOR,URINE YELLOW (Yellow); GLUCOSE, URINE 250 mg/dl (Neg); KETONES,URINE NEGATIVE (Neg); LEUKOCYTE ESTERASE ,URINE NEGATIVE (Neg); NITRITES, URINE NEGATIVE (Neg); OCCULT BLOOD,URINE LARGE (Neg); PH,URINE 5.5 (4.8-8.0); PROTEIN,URINE TRACE mg/dl (Neg); UROBILINOGEN,URINE 0.2 E.U/dL (0.2-1.0)
[2024-05-19 17:17] LABS: BASOPHILS # (AUTO) 0.1 X10'3 (0-0.2); BASOPHILS % (AUTO) 1.1 % (0-1); EOSINOPHILS # (AUTO) 0.2 X10'3 (0-0.9); EOSINOPHILS % (AUTO) 2.4 % (0-6); HEMATOCRIT 31.7 % (42.0-52.0); HEMOGLOBIN 10.5 g/dl (14.0-17.9); LYMPHOCYTES # (AUTO) 0.6 X10'3 (1.1-4.8); LYMPHOCYTES % (AUTO) 8.5 % (21-51); MEAN CORPUSCULAR HEMOGLOBIN 27.9 PG (27.0-31.0); MEAN CORPUSCULAR HGB CONC 33.1 g/dL (33.0-36.5); MEAN CORPUSCULAR VOLUME 84.3 FL (78-98); MEAN PLATELET VOLUME 6.9 FL (7.4-10.4); MONOCYTES # (AUTO) 0.5 X10'3 (0-0.9); NEUTROPHILS # (AUTO) 5.6 X10'3 (1.8-7.7); PLATELET COUNT 344 X10'3 (140-440); RED BLOOD COUNT 3.76 X10'6 (4.70-6.10); RED CELL DISTRIBUTION WIDTH 18.8 % (11.5-14.5)
[2024-05-19 17:19] LABS: UA COLLECTION TYPE FOLEY CATH
[2024-05-19 17:22] LABS: RBC,URINE 50-100 /HPF (0-2); SQUAMOUS EPITHELIAL CELL,UR FEW /LPF (FEW); WBC,URINE 0-4 /HPF (0-4)
[2024-05-19 17:23] LABS: BACTERIA,URINE NONE SEEN /HPF (Neg); YEAST MANY /HPF (NEGATIVE)
[2024-05-19 17:30] LABS: ALBUMIN 1.4 G/DL (3.4-5.0); ANION GAP 6 (8-16); BLOOD UREA NITROGEN 31 MG/DL (7-18); CHLORIDE 101 MMOL/L (99-107); CREATININE 1.29 MG/DL (0.60-1.10); POTASSIUM 4.4 MMOL/L (3.5-5.1); SODIUM 132 MMOL/L (135-145); TOTAL CARBON DIOXIDE 25.3 MMOL/L (24-32); eCRCL 51 ML/MIN; eGFR 53 ML/MIN
[2024-05-19 17:31] LABS: GLUCOSE 164 MG/DL (70-104)
[2024-05-19] MEDS: normal saline 1000ML IV soln IVB ONE (18:34)
[2024-05-19 20:08] VITALS: BP 151/74; PULSE 81; RESP 16; TEMP 98.2; O2SAT 98
== END 2024-05-19 20:37 | disposition home or self-care (01) ==
LOC: ER 15:13
DX: N17.9 Acute kidney failure, unspecified (principal); L03.116 Cellulitis of left lower limb; L03.115 Cellulitis of right lower limb; D64.9 Anemia, unspecified; I25.10 Atherosclerotic heart disease of native coronary artery without angina pectoris; I48.91 Unspecified atrial fibrillation; I50.9 Heart failure, unspecified; Z20.822 Contact with and (suspected) exposure to COVID-19
CPT/HCPCS: 36415; 70450; 71045; 80048; 81001; 83605; 84145; 85025; 87040; 87088; 87811; 96360; 99284; J7030